=== PATIENT | male | born 2000 | race Caucasian/White ===

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

== ENCOUNTER 2020-02-07 18:02 | Inpatient (IN) | payer MEDICAID, OTHER ==
--- NOTE | 2020-02-07 18:38 | ED ---
General Adult HPI - General Chief complaint: Psychiatric Symptoms Stated complaint: Mental health Time Seen by Provider: 02/07/20 18:31 Source: patient, police Mode of arrival: ambulatory Limitations: no limitations - History of Present Illness Initial comments: Dictation was produced using Pansieve dictation software. please excuse any grammatical, word or spelling errors. This patient was cared for during a federal and state declared state of e mergency secondary to Covid 19 Chief Complaint: 20-year-old male past medical history of psychiatric disease presents with psychiatric behavior History of Present Illness: 20-year-old male he was brought in by law enforcement for psychiatric evaluation. Patient reports that he's been sc ratching his left upper extremity. He denies any suicidality or homicidality to me. Patient denies feeling like anyone is out to get him. His sibling was allegedly the person who called enforcement on him. Patient has not been taking his medications. The ROS documented in this emergency department record has been reviewed and confirmed by me. Those systems with pertinent positive or negative responses have been documented in the HPI. All other systems are other negative and/or noncontributory. PHYSICAL EXAM: General Impression: Alert and oriented x3, not in acute distress HEENT: Normocephalic atraumatic, extra-ocular movements intact, pupils equal and reactive to light bilaterally, mucous membranes moist. Cardiovascular: Heart regular rate and rhythm Chest: Able to complete full sentences, no retractions, no tachypnea Abdomen: abdomen soft, non-tender, non-distended, no organomegaly Musculoskeletal: Pulses present and equal in all extremities, no peripheral edema Motor: no focal deficits noted Neurological: CN II-XII grossly intact, no focal motor or sensory deficits noted Skin: Superficial abrasions to the left upper extremity Psych: Tangential speech, flat affect ED course: 20-year-old male here for psychiatric evaluation. Vital Signs upon arrival are within acceptable limits. Patient medically cleared for EPS evaluation. Patient is signed out to oncoming physician for follow-up of EPS recommendations. Patient was admitted to inpatient psychiatry. - Related Data Home Medications Medication Instructions Recorded Confirmed ARIPiprazole [Abilify] 10 mg PO HS 02/07/20 02/07/20 Allergies Allergy/AdvReac Type Severity Reaction Status Date / Time amoxicillin [Amoxicillin] Allergy Rash/Hives Verified 02/07/20 23:29 venom-honey bee Allergy Swelling Verified 02/07/20 23:29 Review of Systems ROS Statement: Those systems with pertinent positive or pertinent negative responses have been documented in the HPI. ROS Other: All systems not noted in ROS Statement are negative. Past Medical History Past Medical History: No Reported History, Asthma Additional Past Medical History / Comment(s): asbergers History of Any Multi-Drug Resistant Organisms: None Reported Past Surgical History: Tonsillectomy Past Psychological History: ADD/ADHD, Anxiety, Bipolar, Depression, Schizophrenia Smoking Status: Never smoker Past Alcohol Use History: None Reported Past Drug Use History: Marijuana - Past Family History Mother Family Medical History: No Reported History General Exam Limitations: no limitations Course Vital Signs 02/07/20 18:06 Temperature 98.3 F Pulse Rate 99 Respiratory 16 Rate Blood Pressure 130/74 O2 Sat by Pulse 99 Oximetry Medical Decision Making - Lab Data Result diagrams: 02/08/20 07:09 02/08/20 07:09 Lab Results 02/07/20 Range/Units 19:59 Urine Opiates Screen Not Detected (NotDetected) Ur Oxycodone Screen Not Detected (NotDetected) Urine Methadone Screen Not Detected (NotDetected) Ur Propoxyphene Screen Not Detected (NotDetected) Ur Barbiturates Screen Not Detected (NotDetected) U Tricyclic Antidepress Not Detected (NotDetected) Ur Phencyclidine Scrn Not Detected (NotDetected) Ur Amphetamines Screen Not Detected (NotDetected) U Methamphetamines Scrn Not Detected (NotDetected) U Benzodiazepines Scrn Not Detected (NotDetected) Urine Cocaine Screen Not Detected (NotDetected) U Marijuana (THC) Screen Detected H (NotDetected) Disposition Clinical Impression: Psychosis Disposition: ADMITTED IP TO THIS HOSP Condition: Fair Decision Time: 08:55
[2020-02-07 20:35] LABS: Amphetamine Screen,Urine Not Detected (NotDetected); Barbiturate Screen,Urine Not Detected (NotDetected); Benzodiazepines Screen,Urine Not Detected (NotDetected); Cocaine Screen,Urine Not Detected (NotDetected); Methadone Screen, Urine Not Detected (NotDetected); Opiate Screen,Urine Not Detected (NotDetected); Oxycodone Screen, Urine Not Detected (NotDetected); Phencyclidine Screen,Urine Not Detected (NotDetected); Tricyclic Antidepressant,Urine Not Detected (NotDetected); Urn Cannabinoid Scrn Detected (NotDetected)
[2020-02-07] MEDS ORDERED: MAGNESIUM HYDROXIDE 2,400 MG/10 ML CUP PO PRN (22:04)
[2020-02-07] MEDS ORDERED: ACETAMINOPHEN TAB 325 MG TAB PO PRN (22:04)
[2020-02-07] MEDS ORDERED: LORazepam 1 MG TAB PO PRN (22:04)
[2020-02-07] MEDS ORDERED: MAG HYDROX/AL HYDROX/SIMETH 30 ML CUP PO PRN (22:04)
[2020-02-07] MEDS ORDERED: ZIPRASIDONE 20 MG VIAL IM PRN (22:04)
[2020-02-07] MEDS ORDERED: LORazepam 2 MG/ML INJ IM PRN (22:05)
[2020-02-07] MEDS: ARIPiprazole 10 MG TAB PO SCH (23:45)
[2020-02-08 07:21] LABS: Basophils % (A) 1 %; Eosinophils # (A) 0.2 k/uL (0-0.7); Eosinophils % (A) 2 %; HCT 42.8 % (39.0-53.0); HGB 13.7 gm/dL (13.0-17.5); Lymphocytes # (A) 2.2 k/uL (1.0-4.8); Lymphocytes % (A) 30 %; MCH 28.3 pg (25.0-35.0); MCV 88.2 fL (80.0-100.0); Mean Platelet Volume 8.5; Monocytes # (A) 0.4 k/uL (0-1.0); Monocytes % (A) 5 %; Neutrophils # (A) 4.4 k/uL (1.3-7.7); Neutrophils % (A) 60 %; Platelet Count 183 k/uL (150-450); RBC 4.85 m/uL (4.30-5.90); WBC 7.3 k/uL (4.0-11.0)
[2020-02-08 07:45] LABS: ALT 18 U/L (4-49); AST 22 U/L (17-59); African American GFR (CKD) >90 (>60 ml/min/1.73 sqM); Albumin 4.4 g/dL (3.5-5.0); Alkaline Phosphatase 60 U/L (38-126); Anion Gap 7 mmol/L; Blood Urea Nitrogen 12 mg/dL (9-20); Calcium 9.5 mg/dL (8.4-10.2); Carbon Dioxide 27 mmol/L (22-30); Chloride 106 mmol/L (98-107); Cholesterol 127 mg/dL (<200); Glucose 100 mg/dL (74-99); HDL Cholesterol 44 mg/dL (40-60); LDL Cholesterol,Calculated 62 mg/dL (0-99); Non-African American GFR(CKD) >90 (>60 ml/min/1.73 sqM); Potassium 4.7 mmol/L (3.5-5.1); Sodium 140 mmol/L (137-145); Total Bilirubin 0.7 mg/dL (0.2-1.3); Total Protein 7.1 g/dL (6.3-8.2); Triglycerides 104 mg/dL (<150)
--- NOTE | 2020-02-08 10:42 | P.HP ---
Psychiatric H&P - . H&P Date: 02/08/20 History & Physical: Allergies Allergy/AdvReac Type Severity Reaction Status Date / Time amoxicillin Amoxicillin Allergy Rash/Hives Verified 02/07/20 23:29 venom-honey bee Allergy Swelling Verified 02/07/20 23:29 Vital Signs Temp 97.5 F L 02/08/20 07:01 Pulse 50 L 02/08/20 07:01 Resp 16 02/08/20 07:01 BP 117/60 02/08/20 07:01 Pulse Ox 96 02/08/20 07:01 Intake & Output 02/07/20 02/08/20 02/08/20 18:59 06:59 18:59 Weight 127.459 kg 127.459 kg Laboratory Last Values WBC 7.3 k/uL (4.0-11.0) 02/08/20 07:09 RBC 4.85 m/uL (4.30-5.90) 02/08/20 07:09 Hgb 13.7 gm/dL (13.0-17.5) 02/08/20 07:09 Hct 42.8 % (39.0-53.0) 02/08/20 07:09 MCV 88.2 fL (80.0-100.0) 02/08/20 07:09 MCH 28.3 pg (25.0-35.0) 02/08/20 07:09 MCHC 32.0 g/dL (31.0-37.0) 02/08/20 07:09 RDW 13.0 % (11.5-15.5) 02/08/20 07:09 Plt Count 183 k/uL (150-450) 02/08/20 07:09 Neutrophils % 60 % 02/08/20 07:09 Lymphocytes % 30 % 02/08/20 07:09 Monocytes % 5 % 02/08/20 07:09 Eosinophils % 2 % 02/08/20 07:09 Basophils % 1 % 02/08/20 07:09 Neutrophils # 4.4 k/uL (1.3-7.7) 02/08/20 07:09 Lymphocytes # 2.2 k/uL (1.0-4.8) 02/08/20 07:09 Monocytes # 0.4 k/uL (0-1.0) 02/08/20 07:09 Eosinophils # 0.2 k/uL (0-0.7) 02/08/20 07:09 Basophils # 0.0 k/uL (0-0.2) 02/08/20 07:09 Sodium 140 mmol/L (137-145) 02/08/20 07:09 Potassium 4.7 mmol/L (3.5-5.1) 02/08/20 07:09 Chloride 106 mmol/L (98-107) 02/08/20 07:09 Carbon Dioxide 27 mmol/L (22-30) 02/08/20 07:09 Anion Gap 7 mmol/L 02/08/20 07:09 BUN 12 mg/dL (9-20) 02/08/20 07:09 Creatinine 0.62 mg/dL (0.66-1.25) L 02/08/20 07:09 Est GFR (CKD-EPI)AfAm >90 (>60 ml/min/1.73 sqM) 02/08/20 07:09 Est GFR (CKD-EPI)NonAf >90 (>60 ml/min/1.73 sqM) 02/08/20 07:09 Glucose 100 mg/dL (74-99) H 02/08/20 07:09 Calcium 9.5 mg/dL (8.4-10.2) 02/08/20 07:09 Total Bilirubin 0.7 mg/dL (0.2-1.3) 02/08/20 07:09 AST 22 U/L (17-59) 02/08/20 07:09 ALT 18 U/L (4-49) 02/08/20 07:09 Alkaline Phosphatase 60 U/L (38-126) 02/08/20 07:09 Total Protein 7.1 g/dL (6.3-8.2) 02/08/20 07:09 Albumin 4.4 g/dL (3.5-5.0) 02/08/20 07:09 Triglycerides 104 mg/dL (<150) 02/08/20 07:09 Cholesterol 127 mg/dL (<200) 02/08/20 07:09 LDL Cholesterol, Calc 62 mg/dL (0-99) 02/08/20 07:09 HDL Cholesterol 44 mg/dL (40-60) 02/08/20 07:09 TSH 1.420 mIU/L (0.465-4.680) 02/08/20 07:09 Urine Opiates Screen Not Detected (NotDetected) 02/07/20 19:59 Ur Oxycodone Screen Not Detected (NotDetected) 02/07/20 19:59 Urine Methadone Screen Not Detected (NotDetected) 02/07/20 19:59 Ur Propoxyphene Screen Not Detected (NotDetected) 02/07/20 19:59 Ur Barbiturates Screen Not Detected (NotDetected) 02/07/20 19:59 U Tricyclic Antidepress Not Detected (NotDetected) 02/07/20 19:59 Ur Phencyclidine Scrn Not Detected (NotDetected) 02/07/20 19:59 Ur Amphetamines Screen Not Detected (NotDetected) 02/07/20 19:59 U Methamphetamines Scrn Not Detected (NotDetected) 02/07/20 19:59 U Benzodiazepines Scrn Not Detected (NotDetected) 02/07/20 19:59 Urine Cocaine Screen Not Detected (NotDetected) 02/07/20 19:59 U Marijuana (THC) Screen Detected (NotDetected) H 02/07/20 19:59 02/08/20 10:39 IDENTIFYING DATA: Patient is a 20-year-old male with history of schizoaffective disorder and cannabis use, currently lives with his mother and sister in apartment and works at [employer]. HPI: Patient presented to the hospital yesterday and was brought in by police for a psychiatric evaluation. Patient has a history of schizoaffective disorder and was last admitted to the mental health unit in 2018. Patient apparently had been scratching at his left upper extremity and was apparently noncompliant with medications at home according to ER report. Patient's UDS is positive for THC. Patient was seen on the unit today by conventional underwriter and was agreeable to speak for evaluation today. Patient appeared to have poor hygiene and grooming. He was calm and appropriate with conventional underwriter and stated that he is having suicidal thoughts at home and also was feeling very anxious. He states that the anxiety was making him "scratched my arm". He states that the police picked him up and he denied any more suicidal thoughts at that time. He claims that he's been off of his Abilify by mouth for approximately a month and a half and claims that he is been trying to play "phone tag" with [facility] however has not been able to get his medication refilled and ran out. He states that his anxiety level has improved mildly since being on the unit. He denied any stressors at home or any triggers. He states that his mood is chronically depressed. He denied any paranoia or delusions at this time. He states that he has a fair appetite and sleeps fairly at night. Patient denies any suicidal or homicidal ideations intent or plan. At this time patient denies any visual hallucinations however does admit to auditory hallucinations of "someone calling my name". Patient denies any flight of ideas racing thoughts and increased in goal directed behavior. Patient admits to using marijuana every other week and denies any cigarette use or any other recreational drug use. PAST PSYCHIATRIC HISTORY: Patient states that he has a history of schizoaffective disorder. Patient was previously on Abilify by mouth 10 mg daily at bedtime. She was previously hospitalized on the mental health unit on 06/2018 at [facility]. Patient apparently follows up with [facility] with Dr. Reed. Patient denies any history of suicide attempts in the past. PMH: Asthma ALLERGIES: as per EMR CHEMICAL DEPENDENCY HISTORY: as per HPI FAMILY PSYCHIATRIC/SUBSTANCE USE HISTORY: Patient states that his father has schizophrenia, mother has bipolar, grandmother has bipolar and sister has bipolar. SOCIAL HISTORY: Patient was born and raised in [place] [place] [facility] and claims that he completed high school. He currently lives with his mother and sister in apartment and works at [employer]. He denied any legal problems. He is currently single and has no kids. MENTAL STATUS EXAM: General Appearance: Patient appears to be overweight, stated age is alert, directable, and attempts to cooperate. Patient appears to have poor hygiene and grooming. Behavior: Patient is seated without any agitated behavior. Attempts to cooperate. Speech: Patient's speech is fluent and nonpressured. Soft tone of voice. Mood/Affect: Patient reports their mood is depressed and anxious, affect is congruent and constricted. Suicidality/Homicidality: Patient denies having any homicidal ideation intent or plan. Denies any suicidal ideations intent or plan Perceptions: Patient denies any visual hallucinations and admits to auditory hallucinations of "someone calling my name". Though content/process: There is no evidence of any delusional thought content and thought process is linear and goal-directed. [place]. Memory and concentration: AOX3, grossly intact for the purposes of this session. Can spell "WORLD" backwards Judgment and insight: Limited STRENGTHS/WEAKNESSES: strength is that patient is resilient. Weakness is that patient has poor judgment and has a history of mental illness INTELLECT: average IMPRESSIONS: Schizoaffective disorder unspecified Cannabis use disorder PLAN: -Patient is admitted under voluntary status to MHU for stabilization of psychiatric symptoms and safety. Patient signed adult voluntary form and medication consent and is placed in patient's chart. -Medications : Will start patient on Abilify by mouth 10 mg daily at bedtime for mood stabilization/psychosis. We'll also start patient on BuSpar 10 mg twice a day for anxiety. -Ativan and Geodon PRN for agitation/aggression -Patient was counselled on substance abuse and desired to cut back on use -Patient was informed of the risks, benefits and side effects of the medication and patient verbally consented to taking the medications. Patient signed med consent form and was placed in chart. -Internal Medicine consult to perform medical evaluation and physical. -NRT - not need his patient does not smoke -SW on board for discharge planning. Encourage patient to participate in groups to work on coping skills. 02/08/20 10:41 02/08/20 11:28 02/08/20 11:30 02/08/20 11:39
[2020-02-08] MEDS: busPIRone HCl 10 MG TAB PO SCH ×2 (11:38→21:02)
--- NOTE | 2020-02-08 20:53 | CONS ---
CONSULTATION I was to see the patient in consultation, but the elevator was closed off the third floor and the patient will be seen on February 08. MMCHADWICK / JUDDN: [id number] /
[2020-02-08] MEDS: ARIPiprazole 10 MG TAB PO SCH (21:02)
[2020-02-09] MEDS: busPIRone HCl 10 MG TAB PO SCH (08:25)
--- NOTE | 2020-02-09 12:30 | PN ---
PROGRESS NOTE DATE OF SERVICE: 02/09/2020 SUBJECTIVE: Patient was seen attending group this morning and was directable and agreeable to speak to rfp writer in the office. Patient appeared to have an improved affect and was more calm and cooperative with rfp writer. Patient claims that he has been taking his medications as prescribed and states that the "BuSpar is really helping me." and claims that it is helping his anxiety. He states that he wants to remain on the same dose of the BuSpar at this time. He also states that the Abilify is helping stabilize his mood. He claims that he is getting along with others on the unit well at this time. He states that he has been going to groups. He also states that he has been showering and eating well. He did not endorse any paranoia or delusions today. He claims that he was able to sleep well last night. Patient denies any auditory or visual hallucinations and denies any suicidal or homicidal ideations, intent, or plan. MENTAL STATUS EXAM: Patient appears to be stated age, is overweight and appears to be alert, calm, and cooperative, and has mildly improved hygiene and grooming and wearing street clothing. Patient's speech is fluent and nonpressured. Patient did not display any agitation and was cooperative. Patient claims that his mood is mildly improving along with his anxiety, which is also improving. The patient's affect was congruent. The patient denied any auditory or visual hallucinations and did not endorse any suicidal, homicidal ideations, intent, or plan. Patient was goal oriented and logical, however, was concrete. Patient has improving insight and judgment mildly. ASSESSMENT/PLAN: Continue with current diagnosis. Patient to be continued on current medications as prescribed including BuSpar and Abilify at the same dose. The patient is agreeable to the transition onto Abilify Maintena long-acting injection starting tomorrow, 400 mg IM to ensure compliance. The patient was then encouraged to go to groups and participated in milieu. Continue with Geodon and Ativan p.r.n. IM for agitation. Likely discharge in 1-2 days back home. MMEDYTAL / JUDDN: [id number] /
--- NOTE | 2020-02-09 20:15 | CONS ---
CONSULTATION CHIEF COMPLAINT: Agitated behavior with a history of ADHD and autism. HISTORY OF PRESENT ILLNESS: This gentleman apparently got into some kind of difficulty with a family member and became aggressive, violent and uncontrolled. He was brought into the hospital for admission. REVIEW OF SYSTEMS: He is having no headaches, neurologic problems, difficulty with vision or hearing, shortness of breath, cough, hemoptysis, asthma, hypertension, murmurs, rheumatic fever, abdominal pain, nausea, vomiting, hematemesis, melena, hematochezia, jaundice, renal failure, hematuria, frequency, urgency, dysuria, incontinence, diabetes, etc. Past medical history, family history, and personal and social histories are otherwise unremarkable and noncontributory. He is not currently taking any medication. He is ALLERGIC TO PENICILLIN. His family history and personal and social histories are unremarkable. He does not smoke or drink. PHYSICAL EXAMINATION: Blood pressure is 124/88, pulse of 66, respirations of 16 and temperature 96.6. In general he appeared to be overweight and in no acute distress. Skin color was normal. Skin was warm and dry. Lymph nodes were not enlarged. Head, ears, eyes, nose, mouth and throat were normal. Chest was clear to auscultation. Cardiac exam was normal sinus rhythm. Abdomen was protuberant, soft and nontender without any visceromegaly or masses. Extremities were normal. Neurologically he was intact. He was awake and alert and seemed pleasant. IMPRESSION: 1. Aggressive and acting-out behavior. 2. History of autism. 3. Oppositional defiant disorder. 4. Obesity. RECOMMENDATIONS: None. MMODL / IJN: [id number] /
[2020-02-10] MEDS: busPIRone HCl 10 MG TAB PO SCH ×2 (08:41→20:02)
--- NOTE | 2020-02-10 09:57 | P.PN ---
Progress Note - Text Progress Note Date: 02/10/20 Interval History: Patient was seen wandering the hallways and was directable and agreeable to mandi kumar with telegraphic typewriter operator chief in the office. Patient states that he went to group this morning and claimed that he is getting a lot out of speaking with other patients on the unit and doing activities. He states that his mood has gradually been improving since being on the unit. He also states that his anxiety has improved on the BuSpar. He claims that he would like to remain on the same dose of these medications. Patient appeared to be more future oriented today in speaking about discharge. He states that he is looking forward to going back to work once he is released from the hospital. Patient was agreeable to take the Abilify Maintenna long-acting injection today. He states that he was able to sleep well last night with no overnight complaints. He claims a fair appetite. At this time patient denies any suicidal or homical ideations, intent or plan. Patient denies any auditory, visual hallucinations and denies any paranoia or delusions. Patient denies any side effects from the medications and has been compliant with meds. Mental Status Exam: General Appearance: Patient appears to be overweight, stated age is alert, directable, and attempts to cooperate. Patient appears to have improving hygiene and grooming. Behavior: Patient is seated without any agitated behavior. Speech: Patient's speech is fluent and nonpressured. Mood/Affect: Patient reports their mood is "doing better", affect is congruent Suicidality/Homicidality: Patient denies having any homicidal ideation intent or plan. Denies any suicidal ideations intent or plan Perceptions: Patient denies any visual hallucinations and denies any auditory hallucinations. Though content/process: There is no evidence of any delusional thought content and thought process is linear and goal-directed. [place]. Memory and concentration: AOX3, grossly intact for the purposes of this session. Judgment and insight: Limited, improving mildly Assessment Schizoaffective disorder unspecified Cannabis use disorder Plan: -Patient continues to meet criteria for inpatient psychiatric admission for symptom stabilization and safety. Patient has signed adult voluntary form and medication consent and was placed in patient's chart. -Medications: Continue with Abilify by mouth 10 mg daily for mood stabilization/psychosis. Continue with BuSpar 10 mg twice a day for anxiety. Patient is agreeable to take Abilify Maintenna 400 mg IM today. -When necessary Ativan and Geodon for agitation/aggression. -NRT -not needed as patient does not smoke -SW on board for discharge planning. Encouraged the patient to participate in milieu. Patient will be observed overnight after receiving the Abilify Maintenna injection and likely discharge tomorrow morning back home.
[2020-02-10] MEDS ORDERED: ARIPiprazole IM SYRINGE 400 MG (NO CHARGE) IM ONE ×2 (11:15→12:00)
[2020-02-10] MEDS ORDERED: ARIPiprazole IM 400 MG VIAL (NO COST) IM ONE (12:00)
[2020-02-10] MEDS: ARIPiprazole 10 MG TAB PO SCH (20:02)
[2020-02-11] MEDS: busPIRone HCl 10 MG TAB PO SCH ×2 (08:38→09:23)
[2020-02-11 09:16] VITALS: BP 131/67; PULSE 127; RESP 20; TEMP 97.4
[2020-02-11] MEDS: ARIPiprazole 10 MG TAB PO SCH (09:22)
--- NOTE | 2020-02-11 09:49 | P.DS ---
Providers Date of admission: 02/07/20 21:54 Expected date of discharge: 02/11/20 Attending physician: Abel Walker MD Consults: 02/07/20 22:04 Consult Physician Routine Consulting Provider: Diogenes Xie Consult Reason/Comments: H&P and medical Do you want consulting provider notified?: Yes Primary care physician: Diogenes Xie - Discharge Diagnosis(es) (1) Schizoaffective disorder, unspecified Current Visit: Yes Status: Acute Priority: High (2) Cannabis use disorder, mild, abuse Current Visit: Yes Status: Acute Priority: Low Hospital Course: Admission HPI: Patient is a 20-year-old male with history of schizoaffective disorder and cannabis use, currently lives with his mother and sister in apartment and works at [employer]. Patient presented to the hospital yesterday and was brought in by police for a psychiatric evaluation. Patient has a history of schizoaffective disorder and was last admitted to the mental health unit in 2018. Patient apparently had been scratching at his left upper extremity and was apparently noncompliant with medications at home according to ER report. Patient's UDS is positive for THC. Patient was seen on the unit today by business writer and was agreeable to speak for evaluation today. Patient appeared to have poor hygiene and grooming. He was calm and appropriate with business writer and stated that he is having suicidal thoughts at home and also was feeling very anxious. He states that the anxiety was making him "scratched my arm". He states that the police picked him up and he denied any more suicidal thoughts at that time. He claims that he's been off of his Abilify by mouth for approximately a month and a half and claims that he is been trying to play "phone tag" with [facility] however has not been able to get his medication refilled and ran out. He states that his anxiety level has improved mildly since being on the unit. He denied any stressors at home or any triggers. He states that his mood is chronically depressed. He denied any paranoia or delusions at this time. He states that he has a fair appetite and sleeps fairly at night. Patient denies any suicidal or homicidal ideations intent or plan. At this time patient denies any visual hallucinations however does admit to auditory hallucinations of "someone calling my name". Patient denies any flight of ideas racing thoughts and increased in goal directed behavior. Patient admits to using marijuana every other week and denies any cigarette use or any other recreational drug use. Hospital course: Upon admission to the unit patient was initially experiencing auditory hallucinations and was depressed and anxious. Patient was however directable and agreeable to commence treatment. Patient got along well with other patients on the unit and followed unit protocol. Patient was compliant with the medications and denied any side effects throughout hospital course. Patient was started on Abilify by mouth and titrated up to dose of 10 mg daily for mood stabilization/psychosis. Patient was also started on BuSpar 10 mg twice a day for anxiety. Patient was agreeable to take Abilify Maintenna 400 mg IM on 02/10/2020 and will be due for his next injection on 03/09/2020.. Patient spoke of his stressors and engaged in therapy both group and individual. Patient was also seen by medical team for history and physical exam. Throughout the course of the hospitalization patient gradually improved with regards to mood, anxiety, psychosis, sleep and became future oriented with improved insight and judgment. On the day of discharge patient denied any suicidal or homicidal ideations intent or plan denied any auditory or visual hallucinations. Patient endorsed wanting to live for his future and his family. The patient denied any access to guns or weapons. Patient denied any paranoia and did not endorse any delusions. Patient does have a significant history of substance abuse and was counseled on abstaining from all substances including alcohol and marijuana. Patient was also counseled on the medications and need for regular compliance and was encouraged to follow-up with their outpatient appointment for mental health and also for primary care. Prior to discharge a family meeting will be arranged by vp digital marketing social media and crm to answer any questions and ensure safety upon discharge. Mental status exam: General Appearance: Patient appears to be overweight, stated age is alert, pleasant, and cooperative. Patient is in no acute distress and has fair hygiene and grooming Behavior: Patient is calmly seated without any agitated behavior. Cooperative. Speech: Patient's speech is fluent and nonpressured. Mood/Affect: Patient reports their mood is "much better", affect is congruent and euthymic. Suicidality/Homicidality: Patient denies having any suicidal or homicidal ideation intent or plan. Perceptions: Patient denies any auditory or visual hallucinations. Though content/process: There is no evidence of any delusional thought content and thought process is linear and goal-directed. more future oriented Memory and concentration: AOX3, grossly intact for the purposes of this session. Can spell "WORLD" backwards correctly. Judgment and insight: Improved with guarded prognosis Impression: His schizoaffective disorder unspecified Cannabis use disorder, mild Plan: -Continue with discharge today as patient has improved and stabilized psychiatrically and is not currently an imminent threat to himself and/or others. -Continue medications: Continue with BuSpar 10 mg twice a day for anxiety. Patient will continue on Abilify 10 mg by mouth daily for 14 days and then this is to be discontinued. Patient was agreeable to take Abilify Maintenna 400 mg IM on 02/10/2020 and will be due for his next injection on 03/09/2020. -Patient was counseled on the need for medication compliance and appropriate follow-up at mental health and also primary care for medical issues. Patient verbalized understanding and agreed. -Social work to arrange for and conduct family meeting to ensure safety upon discharge and answer any questions/concerns. Social work also to arrange for patients follow up appointments with [facility] for psychiatric care along with follow up with primary care provider. -Patient counseled on abstaining from recreational drugs and marijuana and alcohol. Was informed/educated on the adverse effects on their physical and mental health. Patient verbally agreed and understood. -Patient was instructed to return to the hospital or seek immediate medical care if their psychiatric or medical symptoms do worsen or reoccur. Allergies Allergy/AdvReac Type Severity Reaction Status Date / Time amoxicillin [Amoxicillin] Allergy Rash/Hives Verified 02/07/20 23:29 venom-honey bee Allergy Swelling Verified 02/07/20 23:29 Laboratory Results WBC 7.3 k/uL (4.0-11.0) 02/08/20 07: RBC 4.85 m/uL (4.30-5.90) 02/08/20 07:09 Hgb 13.7 gm/dL (13.0-17.5) 02/08/20 07:09 Hct 42.8 % (39.0-53.0) 02/08/20 07:09 MCV 88.2 fL (80.0-100.0) 02/08/20 07:09 MCH 28.3 pg (25.0-35.0) 02/08/20 07:09 MCHC 32.0 g/dL (31.0-37.0) 02/08/20 07:09 RDW 13.0 % (11.5-15.5) 02/08/20 07:09 Plt Count 183 k/uL (150-450) 02/08/20 07:09 Neutrophils % 60 % 02/08/20 07:09 Lymphocytes % 30 % 02/08/20 07:09 Monocytes % 5 % 02/08/20 07:09 Eosinophils % 2 % 02/08/20 07:09 Basophils % 1 % 02/08/20 07:09 Neutrophils # 4.4 k/uL (1.3-7.7) 02/08/20 07:09 Lymphocytes # 2.2 k/uL (1.0-4.8) 02/08/20 07:09 Monocytes # 0.4 k/uL (0-1.0) 02/08/20 07:09 Eosinophils # 0.2 k/uL (0-0.7) 02/08/20 07:09 Basophils # 0.0 k/uL (0-0.2) 02/08/20 07:09 Sodium 140 mmol/L (137-145) 02/08/20 07:09 Potassium 4.7 mmol/L (3.5-5.1) 02/08/20 07:09 Chloride 106 mmol/L (98-107) 02/08/20 07:09 Carbon Dioxide 27 mmol/L (22-30) 02/08/20 07:09 Anion Gap 7 mmol/L 02/08/20 07:09 BUN 12 mg/dL (9-20) 02/08/20 07:09 Creatinine 0.62 mg/dL (0.66-1.25) L 02/08/20 07:09 Est GFR (CKD-EPI)AfAm >90 (>60 ml/min/1.73 sqM) 02/08/20 07:09 Est GFR (CKD-EPI)NonAf >90 (>60 ml/min/1.73 sqM) 02/08/20 07:09 Glucose 100 mg/dL (74-99) H 02/08/20 07:[address] Glu mg/dL 97 02/08/20 07:09 Hemoglobin A1c 5.0 % (4.0-6.0) 02/08/20 07:09 Calcium 9.5 mg/dL (8.4-10.2) 02/08/20 07:09 Total Bilirubin 0.7 mg/dL (0.2-1.3) 02/08/20 07:09 AST 22 U/L (17-59) 02/08/20 07:09 ALT 18 U/L (4-49) 02/08/20 07:09 Alkaline Phosphatase 60 U/L (38-126) 02/08/20 07:09 Total Protein 7.1 g/dL (6.3-8.2) 02/08/20 07:09 Albumin 4.4 g/dL (3.5-5.0) 02/08/20 07:09 Triglycerides 104 mg/dL (<150) 02/08/20 07:09 Cholesterol 127 mg/dL (<200) 02/08/20 07:09 LDL Cholesterol, Calc 62 mg/dL (0-99) 02/08/20 07:09 HDL Cholesterol 44 mg/dL (40-60) 02/08/20 07:09 TSH 1.420 mIU/L (0.465-4.680) 02/08/20 07:09 Urine Opiates Screen Not Detected (NotDetected) 02/07/20 19:59 Ur Oxycodone Screen Not Detected (NotDetected) 02/07/20 19:59 Urine Methadone Screen Not Detected (NotDetected) 02/07/20 19:59 Ur Propoxyphene Screen Not Detected (NotDetected) 02/07/20 19:59 Ur Barbiturates Screen Not Detected (NotDetected) 02/07/20 19:59 U Tricyclic Antidepress Not Detected (NotDetected) 02/07/20 19:59 Ur Phencyclidine Scrn Not Detected (NotDetected) 02/07/20 19:59 Ur Amphetamines Screen Not Detected (NotDetected) 02/07/20 19:59 U Methamphetamines Scrn Not Detected (NotDetected) 02/07/20 19:59 U Benzodiazepines Scrn Not Detected (NotDetected) 02/07/20 19:59 Urine Cocaine Screen Not Detected (NotDetected) 02/07/20 19:59 U Marijuana (THC) Screen Detected (NotDetected) H 02/07/20 19:59 Vital Signs Temp 97.4 F L 02/11/20 08:40 Pulse 127 H 02/11/20 08:40 Resp 20 02/11/20 08:40 BP 131/67 02/11/20 08:40 Pulse Ox 100 02/10/20 06:48 Patient Condition at Discharge: Stable Plan - Discharge Summary Discharge Rx Participant: No New Discharge Prescriptions: New ARIPiprazole [Abilify] 10 mg PO HS #14 tab busPIRone HCl [Buspar] 10 mg PO BID 30 Days tab Acetaminophen Tab [Tylenol] 650 mg PO Q4HR PRN tab PRN Reason: Pain/Discomfort ARIPiprazole IM [Abilify Maintena] 400 mg IM QMONTH #1 vial Discontinued ARIPiprazole [Abilify] 10 mg PO HS Discharge Medication List ARIPiprazole IM [Abilify Maintena] 400 mg IM QMONTH #1 vial 02/11/20 [Rx] ARIPiprazole [Abilify] 10 mg PO HS #14 tab 02/11/20 [Rx] Acetaminophen Tab [Tylenol] 650 mg PO Q4HR PRN tab 02/11/20 [Rx] busPIRone HCl [Buspar] 10 mg PO BID 30 Days tab 02/11/20 [Rx] Follow up Appointment(s)/Referral(s): [facility] [Outside] - 02/16/20 1:30 pm (02-16-20 @ 1:30 with Geovanna Carter by phone 02-18-20 @ 10:[address] Loza at [facility] office on [address]) Diogenes Xie MD [Primary Care Provider] - 1-2 days Activity/Diet/Wound Care/Special Instructions: Activity and diet as tolerated. Avoid the use of street drugs and alcohol. Take all medications as prescribed. When you are in need of refills on your medications please contact your medical provider and/or outpatient psychiatrist to have this done. Please go to scheduled outpatient appointment for aftercare treatment. If symptoms return or become worse, call the crisis line at and/or go to the nearest emergency room for evaluation Discharge Disposition: HOME SELF-CARE
== END 2020-02-11 12:55 | disposition home or self-care (01) | DRG 885 ==
LOC: EC 18:02 → 3MHU 21:54
PROVIDERS: ADMIT Psychiatry & Neurology Psychiatry; ATTEND Psychiatry & Neurology Psychiatry
DX: F25.9 Schizoaffective disorder, unspecified (principal); R45.851 Suicidal ideations; T43.96XA Underdosing of unspecified psychotropic drug, initial encounter; Z91.128 Patient's intentional underdosing of medication regimen for other reason; E66.9 Obesity, unspecified; Z68.38 Body mass index [BMI] 38.0-38.9, adult; F12.10 Cannabis abuse, uncomplicated; F41.9 Anxiety disorder, unspecified; F84.0 Autistic disorder; F91.3 Oppositional defiant disorder; J45.909 Unspecified asthma, uncomplicated; Z79.899 Other long term (current) drug therapy; Z81.8 Family history of other mental and behavioral disorders; R45.1 Restlessness and agitation; Z88.0 Allergy status to penicillin
CPT/HCPCS: 80053; 80061; 80306; 82075; 83036; 84443; 85025; 99285

== ENCOUNTER → 2020-03-07 | Outpatient (CLI) | payer OTHER | END | disposition home or self-care (01) | LOC: LABWHC1 14:38 | PROVIDERS: ATTEND Family Medicine | DX: U07.1 COVID-19 (principal) | CPT/HCPCS: U0003; C9803 ==

== ENCOUNTER 2021-09-10 00:07 | Emergency (ER) | payer BC, OTHER ==
[2021-09-10 00:32] VITALS: BP 130/77; PULSE 85; RESP 18; TEMP 97.6
--- NOTE | 2021-09-10 01:36 | ED ---
Psych HPI - General Chief Complaint: Psychiatric Symptoms Stated Complaint: Mental health Time Seen by Provider: 09/10/21 01:11 Source: patient, police Mode of arrival: ambulatory - History of Present Illness Initial Comments: 21 year-old male patient presents to the emergency department escorted by police after making suicidal statements at home. Patient states that he has been going through a lot lately to include being fired from his job, living with his whole family in a 1 bedroom apartment, and having money issues. He states that during a heated argument with family this evening he did make some suicidal statements. States that he said this only to get there attention and to let them know the seriousness of his feelings. He denies any current suicidal or homicidal ideation. States that he has not had his abilify since June. He believes if he is able to restart this medication it will help a lot. He did have an appointment with his lining caser at [facility] earlier this week and was feeling good about their plan, until he was fired from his job for taking a personal day to go to the appointment. He denies alcohol use. States he did use marijuana in the past. Denies any other street drugs or cigarettes. Denies any current physical symptoms or illnesses. - Related Data Previous Rx's Medication Instructions Recorded ARIPiprazole IM [Abilify Maintena] 400 mg IM QMONTH #1 vial 02/11/20 ARIPiprazole [Abilify] 10 mg PO HS #14 tab 02/11/20 Acetaminophen Tab [Tylenol] 650 mg PO Q4HR PRN tab 02/11/20 busPIRone HCl [Buspar] 10 mg PO BID 30 Days tab 02/11/20 Allergies Allergy/AdvReac Type Severity Reaction Status Date / Time amoxicillin [Amoxicillin] Allergy Rash/Hives Verified 09/10/21 00:32 venom-honey bee Allergy Swelling Verified 09/10/21 00:32 Review of Systems ROS Statement: Those systems with pertinent positive or pertinent negative responses have been documented in the HPI. ROS Other: All systems not noted in ROS Statement are negative. Past Medical History Past Medical History: No Reported History, Asthma Additional Past Medical History / Comment(s): covid jun 2021, [place] History of Any Multi-Drug Resistant Organisms: None Reported Past Surgical History: Tonsillectomy Additional Past Surgical History / Comment(s): urethral biopsy-benign Past Anesthesia/Blood Transfusion Reactions: No Reported Reaction Past Psychological History: ADD/ADHD, Anxiety, Bipolar, Depression, Schizophren ia Smoking Status: Never smoker Past Alcohol Use History: None Reported Past Drug Use History: Marijuana - Past Family History Mother Family Medical History: No Reported History General Exam Limitations: no limitations General appearance: alert, in no apparent distress, other (This is a well- developed, well-nourished adult male in no acute distress. ) Eye exam: Present: normal appearance, PERRL, EOMI. Absent: scleral icterus, conjunctival injection, periorbital swelling ENT exam: Present: normal exam, normal oropharynx, mucous membranes moist Respiratory exam: Present: normal lung sounds bilaterally. Absent: respiratory distress, wheezes, rales, rhonchi, stridor Cardiovascular Exam: Present: regular rate, normal rhythm, normal heart sounds. Absent: systolic murmur, diastolic murmur, rubs, gallop, clicks Neurological exam: Present: alert, oriented X3, CN II-XII intact Psychiatric exam: Present: depressed. Absent: homicidal ideation, suicidal ideation Skin exam: Present: warm, dry, intact, normal color. Absent: rash Course Vital Signs 09/10/21 00:28 Temperature 97.6 F Pulse Rate 85 Respiratory 18 Rate Blood Pressure 130/77 O2 Sat by Pulse 98 Oximetry Medical Decision Making - Medical Decision Making 21 year-old male patient presents to the emergency department for evaluation after making suicidal statements at home. Patient states he is not suicidal, he made the statements to get his family's attention. Physical examination is unremarkable. He was cleared medically and evaluated by EPS. It was felt he would be safe for discharge home. Safety plan was created. He was given dose of abilify for tonight. Does have an appointment with [facility] tomorrow. Return parameters are discussed in detail. He verbalizes understanding and agrees with this plan. My attending is Dr. Berrios. - Lab Data Lab Results 09/10/21 Range/Units 01:18 Urine Color Yellow Urine Appearance Clear (Clear) Urine pH 5.5 (5.0-8.0) Ur Specific [place] 1.025 (1.001-1.035) Urine Protein Negative (Negative) Urine Glucose (UA) Negative (Negative) Urine Ketones Negative (Negative) Urine Blood Negative (Negative) Urine Nitrite Negative (Negative) Urine Bilirubin Negative (Negative) Urine Urobilinogen <2.0 (<2.0) mg/dL Ur Leukocyte Esterase Negative (Negative) Urine Opiates Screen Not Detected (NotDetected) Ur Oxycodone Screen Not Detected (NotDetected) Urine Methadone Screen Not Detected (NotDetected) Ur Propoxyphene Screen Not Detected (NotDetected) Ur Barbiturates Screen Not Detected (NotDetected) U Tricyclic Antidepress Not Detected (NotDetected) Ur Phencyclidine Scrn Not Detected (NotDetected) Ur Amphetamines Screen Not Detected (NotDetected) U Methamphetamines Scrn Not Detected (NotDetected) U Benzodiazepines Scrn Not Detected (NotDetected) Urine Cocaine Screen Not Detected (NotDetected) U Marijuana (THC) Screen Detected H (NotDetected) Disposition Clinical Impression: Depression Disposition: HOME SELF-CARE Condition: Good Instructions (If sedation given, give patient instructions): Depression (ED), Suicide Prevention (ED) Additional Instructions: Follow up with [facility] as soon as possible. Return the emergency department immediately give any new or worsening symptoms. Is patient prescribed a controlled substance at d/c from ED?: No Referrals: Diogenes Xie MD [Primary Care Provider] - 1-2 days Time of Disposition: 02:12
[2021-09-10 01:57] LABS: Appearance,Urine Clear (Clear); Bilirubin,Urine Negative (Negative); Blood,Urine Negative (Negative); Color,Urine Yellow; Glucose,Urine (UA) Negative (Negative); Ketones,Urine Negative (Negative); Leukocyte Esterase,Urine Negative (Negative); Nitrite,Urine Negative (Negative); PH, Urine 5.5 (5.0-8.0); Protein,Urine Negative (Negative); Specific Gravity,Urine 1.025 (1.001-1.035); Urobilinogen,Urine <2.0 mg/dL (<2.0)
[2021-09-10] MEDS ORDERED: ARIPiprazole 10 MG TAB PO STA (02:12)
[2021-09-10 02:13] LABS: Amphetamine Screen,Urine Not Detected (NotDetected); Barbiturate Screen,Urine Not Detected (NotDetected); Benzodiazepines Screen,Urine Not Detected (NotDetected); Cocaine Screen,Urine Not Detected (NotDetected); Methadone Screen, Urine Not Detected (NotDetected); Opiate Screen,Urine Not Detected (NotDetected); Oxycodone Screen, Urine Not Detected (NotDetected); Phencyclidine Screen,Urine Not Detected (NotDetected); Tricyclic Antidepressant,Urine Not Detected (NotDetected); Urn Cannabinoid Scrn Detected (NotDetected)
[2021-09-10] MEDS ORDERED: ARIPiprazole 10 MG TAB PO SCH (09:00)
== END 2021-09-10 03:25 | disposition home or self-care (01) ==
LOC: EC 00:07
DX: F32.A Depression, unspecified (principal); Z88.1 Allergy status to other antibiotic agents; Z91.030 Bee allergy status
CPT/HCPCS: 80306; 81003; 82075; 99284